=== PATIENT | female | born 1980 | race Caucasian/White ===

== ENCOUNTER 2019-11-12 18:19 | Emergency (ER) | payer OTHER, SELFPAY ==
[2019-11-12 18:28] VITALS: BP 163/94; PULSE 98; RESP 16; TEMP 37.1; O2SAT 100
[2019-11-12 18:45] LABS: Basophils Absolute Auto 0.1 K/mm3 (0.0-0.1); Basophils Percent Auto 0.7 % (0.2-1.2); Eosinophils Absolute Auto 0.3 K/mm3 (0-0.3); Eosinophils Percent Auto 3.5 % (0-4.4); Hematocrit 39.2 % (37.0-47.0); Hemoglobin 12.3 g/dL (12.0-15.0); Immature Granulocyte Absolute 0.02 K/mm3 (0.00-0.031); Immature Granulocyte Percent A 0.2 % (0-0.5); Lymphocytes Absolute Auto 2.09 K/mm3 (0.9-3.2); Mean Corpuscular HGB Conc 31.4 g/dl (32-36); Mean Corpuscular Hemoglobin 26.7 pg (26-34); Mean Corpuscular Volume 85.2 fl (80-100); Monocytes Absolute Auto 0.7 K/mm3 (0.1-0.6); Monocytes Percent Auto 7.4 % (2.6-8.5); Neutrophils Absolute Auto 5.9 K/mm3 (1.3-6.7); Neutrophils Percent Auto 65.2 % (45.5-73.1); Platelet Count Result 267 k/mm3 (150-375); Red Cell Distribution Width 16.4 % (11.5-14.5); White Blood Count 9.1 K/mm3 (4.5-10.0)
[2019-11-12 18:58] LABS: Alanine Aminotransferase 22 U/L (4-35); Albumin Level 3.9 g/dL (3.5-5.1); Alkaline Phosphatase 85 U/L (38-126); Aspartate Amino Transferase 22 U/L (14-36); Bilirubin,Total 0.2 mg/dL (0.2-1.3); Blood Urea Nitrogen 15 mg/dL (7-17); Calcium 8.8 mg/dL (8.4-10.2); Carbon Dioxide 26 mmol/L (22-30); Chloride 104 mmol/L (98-107); Estimated CRCL calculation 101 ml/min; Estimated Glomerular Filt Rate > 60; Glucose 92 mg/dL (65-105); Lipase 239 U/L (23-300); Potassium 4.1 mmol/L (3.4-5.0); Sodium 134 mmol/L (137-145)
[2019-11-12 19:10] LABS: Add Urine Microscopic? NO; Appearance Urine Clear (Clear); Bilirubin Urine Negative (Negative); Blood Urine Negative (Negative); Color Urine Straw (Yellow); Glucose Urine UA Negative (Negative); Ketones Urine Negative (Negative); Leukocyte Esterase Ur Negative LEU/UL (Negative); Nitrate Urine Negative (Negative); Protein Urine Negative (Negative); Specific Grav Ur 1.018 (1.001-1.035); Urobilinogen Urine Negative mg/dL (<2.0)
--- NOTE | 2019-11-12 19:37 | ED.ABDPAIN ---
HPI - Abdominal Pain General Chief Complaint: Abdominal Pain Stated Complaint: RUQ ABD PAIN Time Seen by Provider: 11/12/19 19:31 Source: patient Mode of arrival: ambulatory Limitations: no limitations History of Present Illness HPI narrative: 39-year-old female Presents with complaints of upper abdominal pain occurring daily for several days Cannot identify anything which seems to make the pain better or worse, she is able to eat without much difficulty However the pain does seem to wrap around to the right side to the upper back Denies fever denies nausea or vomiting denies diarrhea or constipation denies hematuria dysuria or frequency She smokes a pack daily and she drinks a pint daily MD elicited complaint: abdominal pain Pertinent past history: none Onset (ago): day(s) Pain Consistency: intermittent Location: epigastric and RUQ Severity: moderate Quality: cramping, stabbing and aching Related Data Allergies Allergy/AdvReac Type Severity Reaction Status Date / Time No Known Allergies Allergy Unknown Verified 05/30/19 17:02 Review of Systems Constitutional: Constitutional: Denies chills and Denies fever(s) Eyes: Eyes: Denies change in vision ENT: Denies dysphagia and Denies dizziness Cardiovascular: Cardiovascular: Denies chest pain Respiratory: Respiratory: Denies cough and Denies dyspnea Gastrointestinal: Gastrointestinal: Reports as per HPI Genitourinary: Genitourinary: Reports no additional female genitourinary complaints Musculoskeletal: Musculoskeletal: Denies arthralgias and Denies joint swelling Integumentary/Breasts: Skin/Breast: Denies erythema and Denies rash Neurologic: Denies numbness and Denies weakness Hematologic/Lymphatic: Hematologic/Lymphatic: Denies easy bleeding and Denies easy bruising Exam Const: General: healthy appearing, no acute distress and well developed Nutritional Appearance: well nourished Orientation/consciousness: patient oriented x3 (alert) and Other orientation findings (Alert) Limitations: no limitations HENMT: Head: normocephalic and atraumatic Ears: external ears normal General nose exam: No nasal discharge present and no epistaxis Face and sinus: face symmetric Mouth: Yes lip normal, Yes tongue normal and Yes moist mucous membranes Throat: other (No exudate, no erythema) Eyes: Conjunctivae: conjunctivae normal Sclera: sclerae normal EOM: EOMs intact bilaterally Neck: Neck: full ROM, no lymphadenopathy and supple Thyroid: thyroid normal Chest: Chest palpation & inspection: no tenderness Resp: Effort & Inspection: normal respiratory effort Auscultation: clear to auscultation bilaterally, no rales, no rhonchi, no wheezes and other (breath sounds equal) Cardio: Rate: regular rate Rhythm: regular rhythm Heart sounds: no gallops and no murmurs GI: Inspection: non-distended GI Palp: No abdominal tenderness, Yes Soft to palpation and Yes Tenderness to palpation present (GI) (epigastric) Auscultation: other (bowel sounds present) : General: Yes no CVA tenderness Back/Spine/Pelvis: Back: no CVA tenderness Thoracic/Lumbar Spine: thoracic and lumbar spine normal to inspection Skin: General skin exam: normal color and no rashes or lesions noted Neuro: General: patient oriented x3 (alert), moves all extremities and no focal motor deficits Cranial nerves: Yes facial symmetry Speech: normal speech Motor exam (neuro): Motor abnormalities not present Extrem: General: normal to inspection, full ROM and no pedal edema Psych: Affect: normal affect Course Course Emergency Course: notes, at time of d/c, might have hurt herself lifting a bike Vital Signs Vital signs: Vital Signs Temperature 37.1 C 11/12/19 18:28 Pulse Rate 98 11/12/19 18:28 Respiratory Rate 16 11/12/19 18:28 Blood Pressure 163/94 H 11/12/19 18:28 Pulse Oximetry 100 11/12/19 18:28 Temperature 37.1 C 11/12/19 20:03 Pulse Rate 80 11/12/19 20:03 Respiratory
[2019-11-12 20:03] VITALS: BP 176/119; PULSE 80; RESP 17; TEMP 37.1; O2SAT 99
[2019-11-12] MEDS: BELLADONNA ALK/PHENOB ELIX 10 ML, MAG HYDROX/ALUMINUM HYD/SIMETH 30 ML, LIDOCAINE HCL 2... PO (20:12)
[2019-11-12] MEDS: ONDANSETRON INJ 4 MG/2 ML VIAL IV PUSH (20:14)
[2019-11-12] MEDS: FAMOTIDINE 20 MG/2 ML VIAL 40 MG IV PUSH (20:15)
[2019-11-12] MEDS: LACTATED RINGERS 1,000 ML 999 ML IV CONT (20:17)
[2019-11-12] MEDS: DICYCLOMINE HCL INJ 20 MG/2 ML VIAL IM (20:18)
[2019-11-12 20:40] VITALS: BP 177/88; PULSE 88; RESP 17; TEMP 36.7; O2SAT 97
== END 2019-11-12 20:40 | disposition home or self-care (01) ==
LOC: ANHED 19:58
PROVIDERS: Emergency Provider Emergency Medicine
DX: R10.13 Epigastric pain (principal)
CPT/HCPCS: 36415; 80053; 81003; 81025; 83690; 85025; 96372; 96374; 96375; 99284; A9270; J0500; J2405; J3010; J7120

== ENCOUNTER 2019-12-19 12:36 | Emergency (ER) | payer OTHER, SELFPAY ==
[2019-12-19] VITALS (21 sets, daily range): BP systolic 147–184; BP diastolic 104–131; PULSE 97; RESP 18; TEMP 36.7; O2SAT 99–100
--- NOTE | 2019-12-19 12:57 | PC.NURSE ---
Pt states she has SINGH, SOB,cough, body aches for a few days. Pt states she does not know if she was exposed to anyone. Pt is A&Ox4. Pt LCTA. Pt appears in NAD. Pt neuro intact. Pt has not coughed while in staff presence at this time
[2019-12-19] MEDS: KETOROLAC (*BKC) 60 MG/2 ML VIAL IM (13:50)
[2019-12-19 13:59] LABS: Basophils Absolute Auto 0.1 K/mm3 (0.0-0.1); Basophils Percent Auto 0.7 % (0.2-1.2); Eosinophils Absolute Auto 0.3 K/mm3 (0-0.3); Hematocrit 45.6 % (37.0-47.0); Hemoglobin 14.2 g/dL (12.0-15.0); Immature Granulocyte Absolute 0.03 K/mm3 (0.00-0.031); Immature Granulocyte Percent A 0.3 % (0-0.5); Immature Platelet Fraction Pct 15.7 % (0.9-11.2); Lymphocytes Absolute Auto 1.73 K/mm3 (0.9-3.2); Lymphocytes Percent Auto 18.7 % (18.3-44.2); Mean Corpuscular HGB Conc 31.1 g/dl (32-36); Mean Corpuscular Hemoglobin 26.5 pg (26-34); Mean Corpuscular Volume 85.2 fl (80-100); Mean Platelet Volume 13.1 fl (7.4-10.4); Monocytes Absolute Auto 0.8 K/mm3 (0.1-0.6); Monocytes Percent Auto 8.2 % (2.6-8.5); Neutrophils Absolute Auto 6.4 K/mm3 (1.3-6.7); Neutrophils Percent Auto 69.1 % (45.5-73.1); Platelet Count Result 205 k/mm3 (150-375); Red Blood Count 5.35 M/mm3 (4.2-5.4); Red Cell Distribution Width 17.2 % (11.5-14.5); White Blood Count 9.2 K/mm3 (4.5-10.0)
[2019-12-19 14:12] LABS: Blood Urea Nitrogen 14 mg/dL (7-17); Calcium 9.7 mg/dL (8.4-10.2); Carbon Dioxide 29 mmol/L (22-30); Chloride 102 mmol/L (98-107); Estimated CRCL calculation 107 ml/min; Estimated Glomerular Filt Rate > 60; Glucose 68 mg/dL (65-105); Potassium 4.1 mmol/L (3.4-5.0); Sodium 136 mmol/L (137-145)
[2019-12-19 14:56] LABS: Add Urine Microscopic? YES; Appearance Urine Clear (Clear); Bilirubin Urine Negative (Negative); Blood Urine 1+ (Negative); Color Urine Yellow (Yellow); Glucose Urine UA Negative (Negative); Ketones Urine Negative (Negative); Leukocyte Esterase Ur Negative LEU/UL (Negative); Mucus Urine Rare /lpf; Nitrate Urine Negative (Negative); Protein Urine Negative (Negative); RBC Urine 0-2 /hpf (0-2); Specific Grav Ur 1.018 (1.001-1.035); Squamous Epithelial Cell Urine Occasional /hpf (Few); Urobilinogen Urine Negative mg/dL (<2.0); WBC Urine 0-3 /hpf
--- NOTE | 2019-12-19 15:20 | PC.NURSE ---
Pt given crackers and water for her nausea per ERPHYS. Pt asking for meds for SINGH due to toradol not helping. ERPHYS aware
--- NOTE | 2019-12-19 15:57 | ED.GENADULT ---
HPI - General Adult General Chief complaint: Headache Stated complaint: cough, headache Time Seen by Provider: 12/19/19 13:01 Source: patient Mode of arrival: ambulatory Limitations: no limitations History of Present Illness HPI narrative: 39-year-old with a history of hypertension was supposed to be on clonidine, has not been taking medication for a while here with complaints of headache, sore throat not feeling well occasional cough for past 1 day. Patient states that she works at [employer] and she was at the window all day yesterday. She presently denies any shortness of breath or cough. Onset (ago): day(s) (1) Location: head Radiation: non-radiation Severity: moderate Severity scale (1-10): 7 Quality: aching and dull Pain Consistency: constant Exacerbating factors: none Associated symptoms: cough Treatments prior to arrival: none Related Data Allergies Allergy/AdvReac Type Severity Reaction Status Date / Time No Known Allergies Allergy Unknown Verified 05/30/19 17:02 Review of Systems Review of Systems: All systems reviewed & are unremarkable except as noted in HPI and below Constitutional: Constitutional: Reports no additional constitutional complaints Eyes: Eyes: Reports no additional eye complaints ENT: Reports system reviewed and no additional complaints, except as documented Cardiovascular: Cardiovascular: Reports no additional cardiovascular complaints Respiratory: Respiratory: Reports no additional respiratory complaints Gastrointestinal: Gastrointestinal: Reports no additional gastrointestinal complaints Musculoskeletal: Musculoskeletal: Reports no additional musculoskeletal complaints Neurologic: Reports system reviewed and no additional complaints, except as documented PMFSH Past Medical History Medical History (Updated 12/19/19 @ 16:09 by López Larson MD) Hypertension Exam Narrative: Exam Narrative: GENERAL: Well-appearing, well-nourished, and in no acute distress. HEAD: Normocephalic, atraumatic. EYES: PERRLA and EOMI. ENT: Nares clear, Mucous membranes moist. NECK: Supple. CHEST: Clear to auscultation. No respiratory distress. HEART: Regular rate and rhythm. No murmur heard. Normal peripheral pulses. ABDOMEN: Soft, nontender, nondistended, normal active bowel sounds. EXTREMITIES: Normal range of motion. No edema. SKIN: Warm, dry, no rash. NEURO: No focal deficits. Alert and oriented x3. PSYCH: Normal mood and affect. Course Course Emergency Course: Patient's blood pressure remains to be elevated. She states that she has ran out of her clonidine for quite some time has not found any primary doctor here. Vital Signs Vital signs: Vital Signs Temperature 36.7 C 12/19/19 12:40 Pulse Rate 97 12/19/19 12:40 Respiratory Rate 18 12/19/19 12:40 Blood Pressure 174/121 H 12/19/19 12:40 Pulse Oximetry 100 12/19/19 12:40 Temperature 36.7 C 12/19/19 12:40 Pulse Rate 97 12/19/19 12:40 Respiratory Rate 18 12/19/19 12:40 Blood Pressure 177/128 H 12/19/19 15:15 Pulse Oximetry 100 12/19/19 15:16 Medical Decision Making Vital Signs Vital Signs: Vital Signs Temperature 36.7 C 12/19/19 12:40 Pulse Rate 97 12/19/19 12:40 Respiratory Rate 18 12/19/19 12:40 Blood Pressure 174/121 H 12/19/19 12:40 Pulse Oximetry 100 12/19/19 12:40 Temperature 36.7 C 12/19/19 12:40 Pulse Rate 97 12/19/19 12:40 Respiratory Rate 18 12/19/19 12:40 Blood Pressure 177/128 H 12/19/19 15:15 Pulse Oximetry 100 12/19/19 15:16 Lab Data Result diagrams: 12/19/19 13:50 12/19/19 13:50 Labs: Lab Results 12/19/19 12/19/19 12/19/19 Range/Units 13:50 13:50 14:26 WBC 9.2 (4.5-10.0) K/mm3 RBC 5.35 (4.2-5.4) M/mm3 Hgb 14.2 (12.0-15.0) g/dL Hct 45.6 (37.0-47.0) % MCV 85.2 (80-100) fl MCH 26.5 (26-34) pg MCHC 31.1 L (32-36) g/dl RDW 17.2 H (11.5-14.5) % Plt Count 205
[2019-12-19] MEDS: CLONIDINE HCL 0.1 MG TABLET 0.3 MG PO (16:12)
== END 2019-12-19 16:36 | disposition home or self-care (01) ==
PROVIDERS: Emergency Provider Family Medicine
DX: R51 Headache (principal); I10 Essential (primary) hypertension
CPT/HCPCS: 36415; 80048; 81001; 85025; 85055; 87081; 87804; 87880; 96372; 99283; A9270; J1885

== ENCOUNTER 2020-01-10 16:50 | Emergency (ER) | payer OTHER, SELFPAY ==
--- NOTE | ~2020-01-10 | XR_ITS ---
EXAMINATION: XR chest 2V 01/10/2020 17:31 INDICATION: Chest pain PROCEDURE: 2 view chest COMPARISON: 05/30/2019 FINDINGS: The lungs are clear. The cardiomediastinal silhouette is within normal limits. There are no pleural effusions. There is no pneumothorax suspected. IMPRESSION: 1: NO ACUTE CARDIOPULMONARY DISEASE. Reviewed, dictated and finalized at location A.
[2020-01-10 16:50] VITALS: BP 146/86; PULSE 81; RESP 15; O2SAT 97
--- NOTE | 2020-01-10 17:02 | ED.CHESTPAIN ---
HPI - Chest Pain General Chief Complaint: Chest Pain <Keyon Cardona MD - Last Filed: 01/23/20 21:52> Stated Complaint: CP <Keyon Cardona MD - Last Filed: 01/23/20 21:52> Time Seen by Provider: 01/10/20 17:11 <Keyon Cardona MD - Last Filed: 01/23/20 21:52> History of Present Illness HPI narrative: 39 yo female w/ h/o htn present c/o chest pain. She has had left sided chest pain for the past few days. Today while at work the pain became significantly worse. The pain is worsened by pressure at the left sternal border. Associated with intermittent dyspnea. No cough, congestion, fever, palpitations. <Keyon Cardona MD - Last Filed: 01/23/20 21:52> Related Data Allergies/Adverse Reactions: Allergies Allergy/AdvReac Type Severity Reaction Status Date / Time No Known Allergies Allergy Unknown Verified 01/10/20 16:59 <Keyon Cardona MD - Last Filed: 01/23/20 21:52> Review of Systems Review of Systems: All systems reviewed & are unremarkable except as noted in HPI and below <Keyon Cardona MD - Last Filed: 01/23/20 21:52> Constitutional: Constitutional: Denies chills and Denies fever(s) <Keyon Cardona MD - Last Filed: 01/23/20 21:52> Cardiovascular: Cardiovascular: Reports chest pain <Keyon Cardona MD - Last Filed: 01/23/20 21:52> Respiratory: Respiratory: Denies chest congestion, Denies cough and Reports dyspnea <Keyon Cardona MD - Last Filed: 01/23/20 21:52> Gastrointestinal: Gastrointestinal: Denies abdominal pain <Keyon Cardona MD - Last Filed: 01/23/20 21:52> Musculoskeletal: Musculoskeletal: Denies back pain <Keyon Cardona MD - Last Filed: 01/23/20 21:52> PMFSH Past Medical History Medical History: Medical History Hypertension <Keyon Cardona MD - Last Filed: 01/23/20 21:52> Exam Const: General: healthy appearing, no acute distress and alert <Keyon Cardona MD - Last Filed: 01/23/20 21:52> Orientation/consciousness: patient oriented x3 <Keyon Cardona MD - Last Filed: 01/23/20 21:52> HENMT: Head: normal to inspection <Keyon Cardona MD - Last Filed: 01/23/20 21:52> Chest: Chest palpation & inspection: tenderness sternum (left sternal border) <Keyon Cardona MD - Last Filed: 01/23/20 21:52> Resp: Effort & Inspection: normal respiratory effort <Keyon Cardona MD - Last Filed: 01/23/20 21:52> Auscultation: clear to auscultation bilaterally <Keyon Cardona MD - Last Filed: 01/23/20 21:52> Cardio: Rate: regular rate <Keyon Cardona MD - Last Filed: 01/23/20 21:52> Rhythm: regular rhythm <Keyon Cardona MD - Last Filed: 01/23/20 21:52> GI: Other: NT <Keyon Cardona MD - Last Filed: 01/23/20 21:52> Skin: General skin exam: normal color <Keyon Cardona MD - Last Filed: 01/23/20 21:52> Neuro: General: patient oriented x3, moves all extremities and CN's II-XI intact bilaterally <Keyon Cardona MD - Last Filed: 01/23/20 21:52> Speech: normal speech <Keyon Cardona MD - Last Filed: 01/23/20 21:52> Extrem: General: normal to inspection and no edema <Keyon Cardona MD - Last Filed: 01/23/20 21:52> Course Course Emergency Course: Assumed care of patient from Dr. Cardona at 1900 shift change, awaiting 3-hour troponin. Patient with troponin negative x2. Patient shortly after second troponin was drawn told the nurse she wanted to leave. Discussed with patient importance of waiting for second blood test result before she leaves. Patient advised importance of primary care follow-up. Patient states she has anxiety and is anxious to leave the hospital. Patient left without discharge papers or further discussion after being told her heart enzyme was normal. She took out her own IV and left without discharge papers. <Palma Zavala MD - Last Filed: 01/10/20 21:31> Vi
--- NOTE | 2020-01-10 17:35 | ECG_ITS ---
Measurements Intervals [place] Rate: 76 P: 65 WI: 134 QRS: 83 QRSD: 116 T: 54 QT: 398 QTc: 449 Interpretive Statements SINUS RHYTHM INTRAVENTRICULAR CONDUCTION DELAY BASELINE WANDER- I, II, AVR, AVL, AVF BORDERLINE ECG Electronically Signed On 01-11-2020 8:45:47 CDT by Marek Webb D.O.
[2020-01-10] MEDS: KETOROLAC 30 MG/ML VIAL (*BKC) IV PUSH (17:49)
[2020-01-10 18:01] LABS: Basophils Absolute Auto 0.1 K/mm3 (0.0-0.1); Basophils Percent Auto 0.8 % (0.2-1.2); Eosinophils Absolute Auto 0.3 K/mm3 (0-0.3); Eosinophils Percent Auto 3.1 % (0-4.4); Hematocrit 39.7 % (37.0-47.0); Hemoglobin 12.6 g/dL (12.0-15.0); Immature Granulocyte Absolute 0.01 K/mm3 (0.00-0.031); Immature Granulocyte Percent A 0.1 % (0-0.5); Lymphocytes Absolute Auto 1.78 K/mm3 (0.9-3.2); Lymphocytes Percent Auto 21.4 % (18.3-44.2); Mean Corpuscular HGB Conc 31.7 g/dl (32-36); Mean Corpuscular Hemoglobin 27.4 pg (26-34); Mean Corpuscular Volume 86.3 fl (80-100); Mean Platelet Volume 11.7 fl (7.4-10.4); Monocytes Absolute Auto 0.6 K/mm3 (0.1-0.6); Monocytes Percent Auto 7.5 % (2.6-8.5); Neutrophils Absolute Auto 5.6 K/mm3 (1.3-6.7); Neutrophils Percent Auto 67.1 % (45.5-73.1); Platelet Count Result 244 k/mm3 (150-375); White Blood Count 8.3 K/mm3 (4.5-10.0)
[2020-01-10 18:10] LABS: Prothrombin Time 12.6 Seconds (11.1-14.7)
[2020-01-10 18:11] LABS: Partial Thromboplastin Time 25.3 SECONDS (22.3-36.8)
[2020-01-10 18:12] LABS: Alanine Aminotransferase 15 U/L (4-35); Alkaline Phosphatase 80 U/L (38-126); Aspartate Amino Transferase 23 U/L (14-36); Bilirubin,Total 0.1 mg/dL (0.2-1.3); Blood Urea Nitrogen 15 mg/dL (7-17); Carbon Dioxide 29 mmol/L (22-30); Chloride 104 mmol/L (98-107); Estimated CRCL calculation 99 ml/min; Estimated Glomerular Filt Rate > 60; Glucose 77 mg/dL (65-105); Potassium 4.1 mmol/L (3.4-5.0); Sodium 136 mmol/L (137-145)
[2020-01-10 18:24] LABS: Troponin I < 0.012 ng/mL (0.000-0.034)
[2020-01-10 18:35] VITALS: BP 134/87; PULSE 85; RESP 15; O2SAT 100
[2020-01-10 20:10] VITALS: BP 138/75; PULSE 80; RESP 15; O2SAT 100
[2020-01-10 21:20] LABS: Troponin I < 0.012 ng/mL (0.000-0.034)
== END 2020-01-10 21:32 | disposition home or self-care (01) ==
PROVIDERS: Emergency Medicine; Emergency Provider Emergency Medicine
DX: R07.89 Other chest pain (principal); I10 Essential (primary) hypertension; I45.9 Conduction disorder, unspecified
CPT/HCPCS: 36415; 71046; 80053; 84484; 85025; 85610; 85730; 93005; 96374; 99284; J1885

== ENCOUNTER 2020-10-10 15:19 | Emergency (ER) | payer OTHER, SELFPAY ==
--- NOTE | ~2020-10-10 | CT_ITS ---
EXAMINATION: CT abdomen pelvis wo con DATE: 10/10/2020 17:06 INDICATION: Left flank pain TECHNIQUE: Computed tomography (CT) of the abdomen and pelvis was performed without intravenous contr ast. The dose-length product was 635.62 mGy-cm. Automated exposure control and iterative reconstructi on technique were employed. COMPARISON: CT dated 12/26/2005. FINDINGS: Lung bases are unremarkable. Heart size normal. No significant pleural or pericardial effus ion. The liver, spleen, pancreas, adrenal glands and kidneys are unremarkable. Gallbladder is present. Non obstructive bowel gas pattern. Normal appendix. No free air or free fluid. No acute osseous abnormali ty. No abnormal pelvic masses or fluid collections. No significant vascular abnormality. No lymphaden opathy. No renal/ureteral stones or hydronephrosis. IMPRESSION: 1. No acute abdominal abnormality. Reviewed, dictated and finalized at location A. [employer]
[2020-10-10 15:26] VITALS: BP 199/113; PULSE 104; RESP 18; TEMP 36.2; O2SAT 98
--- NOTE | 2020-10-10 15:30 | ED.BACK ---
HPI - Back Pain/Injury General Chief Complaint: Back Pain/Injury Stated Complaint: right flank pain Time Seen by Provider: 10/10/20 15:30 History of Present Illness HPI Narrative: Left flank/mid back pain for the past week. Worse with movement or taking a deep breath. Associated with nausea, dark urine and urianry frequency. Seen at urgent care yesterday and given toradol, which helped with the pain. Urine dip at that time showed high protein. THey attempted to send her to the ED at that time, but she went home instead. Related Data Allergies Allergy/AdvReac Type Severity Reaction Status Date / Time No Known Allergies Allergy Unknown Verified 10/10/20 15:28 Review of Systems Review of Systems: All systems reviewed & are unremarkable except as noted in HPI and below Constitutional: Constitutional: Denies chills, Denies fever(s) and Denies weakness Cardiovascular: Cardiovascular: Denies chest pain Respiratory: Respiratory: Denies chest congestion, Reports cough and Denies dyspnea Gastrointestinal: Gastrointestinal: Denies abdominal pain, Denies constipation, Denies diarrhea, Reports nausea and Denies vomiting Genitourinary: Genitourinary: Denies hematuria, Reports nocturia, Denies dysuria and Reports flank pain Musculoskeletal: Musculoskeletal: Reports back pain Neurologic: Denies dizziness and Denies weakness [facility] Past Medical History Medical History (Updated 10/10/20 @ 17:37 by Keyon Cardona MD) Hypertension Social History Social History (Updated 10/10/20 @ 16:57 by Keyon Cardona MD) Alcohol intake: current Alcohol use details: alcoholism Gender identity (if verbalized by the patient): Female Exam Const: General: no acute distress and alert Orientation/consciousness: patient oriented x3 HENMT: Head: normal to inspection Chest: Chest palpation & inspection: normal inspection of the chest and tenderness rib (left posterior ) Resp: Effort & Inspection: normal respiratory effort Auscultation: clear to auscultation bilaterally Cardio: Rate: regular rate Rhythm: regular rhythm GI: GI Palp: Yes Soft to palpation and No Tenderness to palpation present (GI) Back/Spine/Pelvis: Back: CVA tenderness (left) Skin: General skin exam: normal color Neuro: General: patient oriented x3, moves all extremities, no focal motor deficits and CN's II-XI intact bilaterally Speech: normal speech Gait exam (Neuro): Normal gait present Extrem: General: normal to inspection Course Vital Signs Vital signs: Vital Signs Temperature 36.2 C L 10/10/20 15:26 Pulse Rate 104 H 10/10/20 15:26 Respiratory Rate 18 10/10/20 15:26 Blood Pressure 199/113 H 10/10/20 15:26 Pulse Oximetry 98 10/10/20 15:26 Temperature 36.2 C L 10/10/20 15:26 Pulse Rate 104 H 10/10/20 15:26 Respiratory Rate 18 10/10/20 15:26 Blood Pressure 199/113 H 10/10/20 15:26 Pulse Oximetry 98 10/10/20 15:26 MDM - Back Pain/Injury MDM Narrative Medical decision making narrative: Pain seems muscular. There is a small amount of blood in her urine. I will get a CT to rule out a stone. No UTI. Differential Diagnosis Differential diagnosis: Likely renal colic, pyelonephritis and other (thoracic strain) Medical Records Attestation: I reviewed the patient's medical records. Lab Data Attestation: I reviewed the patient's lab results. Labs: Lab Results 10/10/20 Range/Units 16:26 Urine Color Yellow (Yellow) Urine Appearance Clear (Clear) Urine pH 5.0 (5.0-9.0) Ur Specific [place] 1.024 (1.001-1.035) Urine Protein Negative (Negative) mg/dL Urine Glucose (UA) Negative (Negative) mg/dL Urine Ketones Negative (Negative) mg/dL Ur Blood (Man) 1+ H (Negative) Urine Nitrate Negative (Negative) Urine Bilirubin Negative (Negative) Urine Urobilinogen Negative (<2.0) mg/dL Leukocyte Esterase Rfl Negative (Negative) ESPERANZA/UL Urine RBC 3-5 H (0-2) /hpf Urine WBC 0
[2020-10-10] MEDS: KETOROLAC (*BKC) 60 MG/2 ML VIAL IM (16:40)
[2020-10-10] MEDS: diazePAM INJ (*CRX) 10 MG/2 ML SYRINGE IM (16:42)
[2020-10-10 16:52] LABS: Add Urine Microscopic? YES; Appearance Urine Clear (Clear); Bilirubin Urine Negative (Negative); Blood Urine 1+ (Negative); Color Urine Yellow (Yellow); Glucose Urine UA Negative (Negative); Ketones Urine Negative (Negative); Leukocyte Esterase Ur Negative LEU/UL (Negative); Mucus Urine Rare /lpf; Nitrate Urine Negative (Negative); Protein Urine Negative (Negative); Specific Grav Ur 1.024 (1.001-1.035); Squamous Epithelial Cell Urine Moderate /hpf (Few); Urobilinogen Urine Negative mg/dL (<2.0); WBC Urine 0-3 /hpf
== END 2020-10-10 17:56 | disposition home or self-care (01) ==
PROVIDERS: Emergency Provider Emergency Medicine; PCP Emergency Medicine
DX: S29.012A Strain of muscle and tendon of back wall of thorax, initial encounter (principal); I10 Essential (primary) hypertension; X58.XXXA Exposure to other specified factors, initial encounter
CPT/HCPCS: 74176; 81001; 81025; 96372; 99284; J1885; J3360

== ENCOUNTER 2021-10-08 13:46 | Emergency (ER) | payer OTHER, SELFPAY ==
[2021-10-08 13:52] VITALS: BP 179/93; PULSE 86; RESP 22; TEMP 37.3; O2SAT 98
--- NOTE | 2021-10-08 14:02 | ED.URI ---
HPI - URI/Sore Throat General Chief Complaint: Upper Respiratory Infection Stated Complaint: congested nausea tight chest Time Seen by Provider: 10/08/21 14:03 Source: patient and RN notes reviewed History of Present Illness HPI Narrative: Patient is a 41-year-old female presents the urgent care with complaints of persistent cough, fatigue, chest congestion, nasal congestion and intermittent nausea. Patient states that she had Covid 3 weeks ago and symptoms do not seem to have resolved since then. Patient has been seen in the emergency room and had steroids and states symptoms got better for just a few days . Patient has been using her inhalers/nebulizers and [facility] cold and flu without much relief. No other acute complaints. Denies of chest pain. No acute distress noted. Patient aware of the plan of care. Some parts of this dictation were generated by voice recognition software and may contain typographical and/or grammatical inaccuracies. Related Data Home Medications Medication Instructions Recorded Confirmed albuterol 90 mcg INHALATION Q4H PRN 10/08/21 10/08/21 alprazolam 1 mg PO TID PRN 10/08/21 10/08/21 clonidine HCl 0.2 mg PO BID 10/08/21 10/08/21 hydralazine 50 mg PO TID 10/08/21 10/08/21 naltrexone microspheres [Vivitrol] 380 mg IM MONTHLY 10/08/21 10/08/21 Allergies Allergy/AdvReac Type Severity Reaction Status Date / Time No Known Allergies Allergy Unknown Verified 10/08/21 14:00 Review of Systems Review of Systems: CONSTITUTIONAL: Reports of chills and sweats EYES: Denies visual changes, redness, or discharge. ENT: Reports rhinorrhea, nasal congestion, sinus pressure CARDIOVASCULAR: Denies chest pain, palpitations, or edema. RESPIRATORY: Reports of acute on chronic cough with intermittent dyspnea GASTROINTESTINAL: Denies abdominal pain, nausea, vomiting, or diarrhea. GENITOURINARY: Denies dysuria or hematuria. SKIN: Denies rash or itching. MUSCULOSKELETAL: Denies back pain, joint pain. Reports body aches NEUROLOGIC: Denies headache, numbness, or weakness. All other systems reviewed are negative, except as documented in HPI. [facility] Past Medical History Medical History (Updated 10/08/21 @ 14:14 by BERTHA Smith) Hypertension Social History Social History (Updated 10/10/20 @ 16:57 by Keyon Cardona MD) Alcohol intake: current Alcohol use details: alcoholism Gender identity (if verbalized by the patient): Female Comments At the time of my signature, I reviewed and agree with the nursing past medical, surgical, social, and family history. There is no relevant family history pertinent to the patient complaint. Exam Narrative: GENERAL: This is a well-nourished, well-developed patient. Appears fatigued HEAD: normocephalic, atraumatic. EYES: PERRL. Sclera clear/white. Vision is grossly intact. EARS: External ears normal, auditory canals clear and without drainage, TMs normal without perforation. Hearing grossly intact. NOSE: External nose normal with no obvious nasal discharge, nares without redness, no rhinorrhea. THROAT: Mucous membranes moist, posterior pharynx clear. Moderate postnasal drainage NECK: Neck supple, CARDIOVASCULAR: Regular rate and rhythm without murmurs, gallops, or rubs. RESPIRATORY: Diminished throughout, crackles bibasilar SKIN: warm, intact with no suspicious lesions or rash, good texture and turgor. NEURO: awake, alert, and oriented to person, place and time. There were no obvious focal neurologic abnormalities. EXTREMITIES: No clubbing, cyanosis, or edema. Course Course Level of Care: Express Care Visit Vital Signs Vital signs: Vital Signs Temperature 99.1 F 10/08/21 13:52 Pulse Rate 86 10/08/21 13:52 Respiratory Rate 22 H 10/08/21 13:52 Blood Pressure 179/93 H 10/08/21 13:52 Pulse Oximetry 98 10/08/21 13:52 Temperature 99.1 F 10/08/21 13:52 Pulse Rate 86 10/08/21 13:52 Respiratory Rate 22 H 10/08/21 13:52 Bl
[2021-10-08 14:04] VITALS: BP 179/93; PULSE 86; RESP 22; TEMP 37.3; O2SAT 98
== END 2021-10-08 14:21 | disposition home or self-care (01) ==
PROVIDERS: Emergency Provider Nurse Practitioner Family; PCP Hospitalist
DX: J40 Bronchitis, not specified as acute or chronic (principal); U09.9 Post COVID-19 condition, unspecified; I10 Essential (primary) hypertension
CPT/HCPCS: 99213; G0463

== ENCOUNTER 2021-11-26 12:21 | Emergency (ER) | payer OTHER, SELFPAY ==
[2021-11-26 12:25] VITALS: BP 166/111; PULSE 101; RESP 18; TEMP 36.8; O2SAT 99
== END 2021-11-26 13:39 | disposition left against medical advice (07) ==
PROVIDERS: Emergency Provider Nurse Practitioner Family
DX: M54.50 Low back pain, unspecified (principal)
CPT/HCPCS: 99199